=== PATIENT | female | born 1955 | race Caucasian/White ===

== ENCOUNTER → 2017-07-24 | Outpatient (CLI) | payer OTHER | END | disposition home or self-care (01) | LOC: RAH 09:49 | DX: Z12.31 Encounter for screening mammogram for malignant neoplasm of breast (principal) | CPT/HCPCS: 77067 ==

== ENCOUNTER → 2022-06-25 | Outpatient (CLI) | payer MEDICARE | END | disposition home or self-care (01) | LOC: RAH 08:17 | PROVIDERS: ATTEND Dermatology | DX: Z12.31 Encounter for screening mammogram for malignant neoplasm of breast (principal) | CPT/HCPCS: 77067 ==

== ENCOUNTER → 2023-07-03 | Outpatient (CLI) | payer MEDICARE | END | disposition home or self-care (01) | LOC: RAH 11:25 | PROVIDERS: ATTEND Dermatology | DX: Z12.31 Encounter for screening mammogram for malignant neoplasm of breast (principal); R92.30 Dense breasts, unspecified | CPT/HCPCS: 77067 ==

== ENCOUNTER → 2024-07-08 | Outpatient (CLI) | payer MEDICARE ==
--- NOTE | 2024-07-11 09:54 | HMCIMG ---
KAMILAH SCREENING BREAST HISTORY: Screening mammogram. COMPARISON: 07/03/2023 TECHNIQUE: Bilateral screening mammogram with CAD was performed with craniocaudal and mediolateral oblique projections. Additional tomosynthesis images were obtained. FINDINGS: The breasts are heterogeneously dense which may obscure small masses. Asymmetric breast density is again seen in the left breast unchanged. There is right breast nodule density at 9:00. Ultrasound is recommended complete evaluation. There is no evidence of a dominant mass, or suspicious microcalcification. There is no evidence of nipple retraction or skin thickening. IMPRESSION: 1. There is right breast nodule density at 9:00. Ultrasound is recommended complete evaluation. Patient was entered into a reminder system with a target due date for their next mammogram. BI-RADS: CATEGORY 0: INCOMPLETE. NEED ADDITIONAL IMAGING EVALUATION Diagnostic mammogram is recommended. Recommend monthly self breast exam as well as annual clinical examination. A negative x-ray should not delay biopsy if a dominant or clinically suspicious mass is present, since 8-10% of cancers are not identified by mammography. Dense breasts particularly, may obscure an underlying neoplasm. Some of these may be detected clinically and therefore, clinical examination is an essential part of breast evaluation.
== END | disposition home or self-care (01) ==
LOC: RAH 11:02
PROVIDERS: ATTEND Dermatology
DX: Z12.31 Encounter for screening mammogram for malignant neoplasm of breast (principal); N63.15 Unspecified lump in the right breast, overlapping quadrants; N63.25 Unspecified lump in the left breast, overlapping quadrants; N64.89 Other specified disorders of breast; R92.333 Mammographic heterogeneous density, bilateral breasts
CPT/HCPCS: 77063; 77067

== ENCOUNTER 2024-09-21 07:28 | Day surgery (SDC) | payer MEDICARE ==
[2024-09-21] VITALS (12 sets, daily range): BP systolic 94–106; BP diastolic 40–60; PULSE 59–76; RESP 14–19; TEMP 97–97.8
[~2024-09-21] VITALS: Ht 170.2 cm; Wt 56.2 kg
[2024-09-21] MEDS: 0.9%NACL 1000ML 1,000 ML IV ONE (08:57)
== END 2024-09-21 12:25 | disposition home or self-care (01) ==
LOC: DAH 07:28 → ENDO 07:28
PROVIDERS: ATTEND Internal Medicine
DX: Z12.11 Encounter for screening for malignant neoplasm of colon (principal); K57.30 Diverticulosis of large intestine without perforation or abscess without bleeding; Z90.710 Acquired absence of both cervix and uterus; Z79.899 Other long term (current) drug therapy
CPT/HCPCS: J7030; J2704; A4620; G0121; A4215; A4223; A7002; A4222; A4221; A4663; A4606; J3490